=== PATIENT | male | born 1980 | race Caucasian/White ===

== ENCOUNTER 2016-08-14 14:53 | Emergency (ER) | payer BC ==
[2016-08-14 15:38] LABS: HEMOGLOBIN 16.3 gm/dl (14.0-17.5); RED BLOOD COUNT 5.45 M/UL (4.20-5.50); WHITE BLOOD COUNT 6.6 K/UL (4.5-11.0)
[2016-08-14 15:51] LABS: BUN/CREATININE RATIO 16 (0-10)
== END 2016-08-14 17:35 | disposition home or self-care (01) ==
LOC: ER1 14:53
PROVIDERS: Physician Assistant Medical
DX: S70.261A Insect bite (nonvenomous), right hip, initial encounter (principal); R53.83 Other fatigue; W57.XXXA Bitten or stung by nonvenomous insect and other nonvenomous arthropods, initial encounter
CPT/HCPCS: 36415; 80053; 85025; 86618; 96360; 99282; J7030

== ENCOUNTER → 2020-04-29 | Outpatient (CLI) | payer BC, OTHER ==
[~2020-04-29] MED LIST: ASPIRIN CHEWABL81 MG PO
[2020-04-29 15:44] LABS: HEMOGLOBIN 15.2 gm/dl (14.0-17.5); RED BLOOD COUNT 5.1 M/UL (4.20-5.50); WHITE BLOOD COUNT 5.9 K/UL (4.5-11.0)
[2020-04-29 16:15] LABS: BUN/CREATININE RATIO 17 (0-10)
== END ==
LOC: LAB 15:11
PROVIDERS: Nurse Practitioner Family
DX: R60.9 Edema, unspecified (principal); I10 Essential (primary) hypertension; E11.9 Type 2 diabetes mellitus without complications; E78.5 Hyperlipidemia, unspecified; R53.83 Other fatigue
CPT/HCPCS: 36415; 80053; 80061; 82607; 83036; 83880; 84153; 85025

== ENCOUNTER → 2020-07-18 | Outpatient (CLI) | payer BC, OTHER | LOC: LAB 13:07 | DX: E11.69 Type 2 diabetes mellitus with other specified complication (principal) | CPT/HCPCS: 36415; 83036 ==

== ENCOUNTER 2020-12-13 03:47 | Emergency (ER) | payer BC ==
[2020-12-13 04:08] LABS: HEMOGLOBIN 17.6 gm/dl (14.0-17.5); RED BLOOD COUNT 5.84 M/UL (4.20-5.50)
[2020-12-13 04:37] LABS: BUN/CREATININE RATIO 20 (0-10)
[2020-12-13] MEDS ORDERED: GABAPENTIN100 MG PO (11:01)
== END 2020-12-13 11:22 | disposition home or self-care (01) ==
LOC: ER1 03:47
PROVIDERS: Physician Assistant
DX: R07.9 Chest pain, unspecified (principal); M79.605 Pain in left leg; E11.9 Type 2 diabetes mellitus without complications; I10 Essential (primary) hypertension; R06.02 Shortness of breath
CPT/HCPCS: 71045; 80053; 82550; 82553; 83874; 84484; 85025; 93005; 93971; 99285; J7030; Q9967

== ENCOUNTER → 2021-05-22 | Outpatient (CLI) | payer BC ==
[~2021-05-22] MED LIST changes: +GABAPENTIN100 MG PO
[2021-05-22 13:30] LABS: HEMOGLOBIN 16.9 gm/dl (14.0-17.5); RED BLOOD COUNT 5.73 M/UL (4.20-5.50); WHITE BLOOD COUNT 6.9 K/UL (4.5-11.0)
[2021-05-22 13:53] LABS: BUN/CREATININE RATIO 27 (0-10)
== END ==
LOC: LAB 12:19
PROVIDERS: Internal Medicine Cardiovascular Disease
DX: E11.69 Type 2 diabetes mellitus with other specified complication (principal); I10 Essential (primary) hypertension; R25.2 Cramp and spasm
CPT/HCPCS: 36415; 80053; 80061; 83036; 83735; 84443; 85027

== ENCOUNTER → 2021-07-03 | Outpatient (CLI) | payer BC | LOC: ECHO 12:00 → NM 12:02 | DX: R07.2 Precordial pain (principal); R06.00 Dyspnea, unspecified | CPT/HCPCS: 78452; 93017; A9502 ==